=== PATIENT | male | born 1950 | race Caucasian/White ===

== ENCOUNTER 2018-07-16 13:55 | Emergency (ER) | payer SELFPAY ==
[2018-07-16 14:29] LABS: % BASOPHILS 0.3 % (0.0-2.0); % EOSINOPHILS 3.3 % (0.0-5.0); % LYMPHOCYTES 18.6 % (20.0-50.0); % MONOCYTES 10.6 % (2.0-10.0); % NEUTROPHILS 67.2 % (40.0-80.0); EOSINOPHILE ABSOLUTE 0.2 Th/cmm (0.1-0.4); HEMATOCRIT 44.2 % (41.0-60); HEMOGLOBIN 14.7 gm/dL (12-16); LYMPHOCYTE ABSOLUTE 1.3 Th/cmm (1.5-3.0); MEAN CELL VOLUME 92.6 fl (80-99); MEAN CORPUSCULAR HEMOGLOBIN 30.8 pg (27.0-31.0); MEAN CORPUSCULAR HGB CONC 33.3 pg (28.0-36.0); MEAN PLATELET VOLUME 7.8 fl; MONOCYTE ABSOLUTE 0.8 Th/cmm (0.3-1.0); NEUTROPHILE ABSOLUTE 4.8 Th/cmm (1.8-8.0); PLATELET COUNT 149 Th/cmm (150-400); RED BLOOD COUNT 4.78 Mil/cmm (3.80-5.80); RED CELL DISTRIBUTION WIDTH 12.3 % (11.5-20.0); WHITE BLOOD COUNT 7.1 Th/cmm (4.8-10.8)
--- NOTE | 2018-07-16 14:31 | ED Physician Chart ---
ED Chief Complaint/HPI - Patient Information Date Seen:: 07/16/18 Time Seen:: 14:15 Chief Complaint:: hand pain no trauma blames on gout hx of prior History of Present Illness:: several days Allergies:: Allergies Allergy/AdvReac Type Severity Reaction Status Date / Time Penicillins Allergy Verified 07/16/18 14:09 Vitals:: Vital Signs - 8 hr 07/16/18 14:10 Temp 97.5 F HR 63 RR 15 BP 140/79 O2 Sat % 98 Historian:: Patient Review:: Nurse's Note Reviewed ED Review of Systems - Review of Systems General/Constitutional: No fever (claims to have reoccurring gout in this hand no trauma no break in the skin no visualizzzzed blood) Skin: Other (marked swelling) Head: No headache Eyes: No loss of vision ENT: No earache Neck: No neck pain Cardio Vascular: No chest pain Pulmonary: No SOB GI: No nausea, No vomiting G/U: No hematuria Musculoskeletal: Bone or joint pain Endocrine: No polyuria Hematopoietic: No bruising Allergic/Immuno: No urticaria Neurological: No syncope ED Past Medical History - Past Medical History Past Medical History: CAD Surgical History: Appendectomy Family Medical History - Family Member Mother History Unknown: Yes Ethnicity: ED Physical Exam - Physical Examination General/Constitutional: Alert, Non-toxic appearing, Ambulatory Head: Atraumatic Eyes: Lids, conjuctiva normal Other Skin comments:: swollen r hand extending past wrist xray no fx ENMT: External ears, nose nl Neck: Nontender, Full ROM w/o pain, No JVD Respiratory: Nl effort/Exclusion Cardio Vascular: RRR, No murmur, gallop, rubs GI: No tenderness/rebounding/guarding Neuro/Psych: Alert/oriented, Judgement/insight normal, Mood normal Misc: Normal back ED Labs/Radiology/EKG Results - Radiology Results Results: chronic changes no sign periostial elevation ED Assessment - Assessment General Assessment: swollen hand wrist ED Septic Shock - . Is Septic Shock (SBP<90, OR Lactate>4 mmol\L) present?: No - <6hrs of presentation: Vital Signs: Vital Signs - 8 hr 07/16/18 14:10 Temp 97.5 F HR 63 RR 15 BP 140/79 O2 Sat % 98 ED Reassessment (Disposition) - Reassessment Reassessment Condition:: Improved (toradol improvement rx indocin colchicine warning fever red lines immediate er pmd you)
--- NOTE | 2018-07-16 14:35 | Diagnostic Imaging Report ---
Right wrist (3 views) HISTORY: Pain, swelling The exam demonstrates mild deformity with calcification adjacent to the ulnar styloid. This may be chronic. Cystic changes noted within the lunate bone consistent with a chronic etiology. A subcentimeter radiolucent focus is noted in the distal radial shaft. As an isolated finding, the finding is of doubtful significance. No acute fractures seen. IMPRESSION: 1. Findings which appear chronic as noted above. No definite acute abnormalities. If inflammatory changes suggested, an MRI exam would provide additional assessment and evaluation. In the presence of recent trauma and persistent symptoms, a follow-up radiograph in 5-7 days may be helpful for detection of a subtle or occult fracture.
== END 2018-07-16 15:30 | disposition home or self-care (01) ==
LOC: ER 13:55
DX: M25.441 Effusion, right hand (principal); M25.431 Effusion, right wrist; M25.541 Pain in joints of right hand; Z88.0 Allergy status to penicillin
CPT/HCPCS: 99284; 96372; 73110; 36415; 86430; 85025; 84550; J1885